=== PATIENT | male | born 1950 | race Caucasian/White ===

== ENCOUNTER 2016-10-14 16:41 | Emergency (ER) | payer OTHER ==
--- NOTE | 2016-10-14 16:44 | PDOC ---
History of Present Illness - General Chief Complaint: Pain, Acute Stated Complaint: LEFT HIP AND LEFT LEG PAIN Time Seen by Provider: 10/14/16 16:44 History Source: Patient Exam Limitations: No Limitations - History of Present Illness Initial Comments: 10/14/16 16:44 The patient is a 66-year-old male with a significant past medical history of severe osteoarthritis, prior left hip replacement, who presents to the emergency department with left hip pain that began after a mechanical fall 2 days ago. He lost his footing, fell onto his left hip. He denies head trauma, pain or injury anywhere other than the left hip. The pain is a mild dull ache. It is worsened with ambulation, movement, palpation. He denies back pain, chest pain, abdominal pain. He denies lower extremity weakness or paresthesias. He denies bladder or bowel incontinence or retention. Past History - Past Medical History Allergies/Adverse Reactions: Allergies Allergy/AdvReac Type Severity Reaction Status Date / Time Penicillins Allergy Intermediate Nausea Verified 10/14/16 16:44 codeine Allergy Nausea Verified 10/14/16 16:45 Home Medications: Ambulatory Orders NK [No Known Home Medication] 10/14/16 Review of Systems - Review of Systems Comments:: 10/14/16 16:45 CONSTITUTIONAL: Absent: fever, chills, fatigue EYES: Absent: visual changes ENT: Absent: ear pain, sore throat CARDIOVASCULAR: Absent: chest pain, palpitations, loss of consciousness RESPIRATORY: Absent: cough, SOB GI: Absent: abdominal pain, nausea, vomiting, constipation, diarrhea GENITOURINARY: Absent: dysuria, frequency, hematuria MUSKULOSKELETAL: Present: See history of present illness Absent: back pain SKIN: Absent: rash NEURO: Absent: headache, dizziness *Physical Exam - Physical Exam Comments: 10/14/16 16:46 GENERAL: Patient is awake, alert and in no acute distress. Speech is clear and appropriate. HEAD: Atraumatic and nontender. HEENT: Pupils are equal round and reactive to light, extraocular movements are intact. The tympanic membranes are clear, no hemotympanum. No facial deformity. No facial bone tenderness or step-off. No nasal septal hematoma. The oropharynx is clear. NECK: The trachea is midline, there is no stridor. There is no midline cervical spine tenderness, full range of motion of neck. CHEST: Non-tender, no ecchymosis or abrasions. Equal chest wall expansion bilaterally. No flail segments. Lungs are clear to auscultation bilaterally. CARDIOVASCULAR: S1-S2, regular rate and rhythm. No murmurs or rubs. ABDOMEN: Soft, nontender, nondistended. Bowel sounds are normoactive. There is no abdominal or flank ecchymosis. BACK/PELVIS: There is no midline thoracic or lumbosacral spine tenderness or step-off. Pelvis is stable and nontender. EXTREMITIES: There is no extremity deformity or joint swelling. No focal bony tenderness throughout. 2+ distal pulses throughout. There is pain at the left hip with passive and active range of motion, especially external rotation. He is able to walk, though it does increase his pain. NEURO: Alert and oriented x3. Cranial nerves II through XII are intact. 5 out of 5 motor strength x4 extremities. No gross sensory deficits. Iljpkv-[id number]-[id number] is intact. No pronator drift. Gait is stable. SKIN: No abrasions, hematomas, lacerations. PSYCH: Affect is appropriate Medical Decision Making - Medical Decision Making 10/14/16 16:46 He is well-appearing and in no acute distress Will obtain x-ray of the hip and pelvis 10/14/16 17:37 Emergency Department interpretation of hip and pelvis x-ray: No acute pathology noted He continues to have pain with ambulation Will obtain CT Clinical impression thusfar: Hip contusion 10/14/16 18:52 CT result pending Case discussed in detail with oncoming Emergency Physician including history, physical exam and ancillary studies. Oncoming Emergency Physician has assumed care for the patient and will complete the evaluation and treatment. *DC/Admit/Observation/Transfer Diagnosis at time of Disposition: Contusion, hip - Discharge Dispostion Condition at time of disposition: Improved - Patient Instructions Printed Discharge Instructions: DI for Contusion Additional Instructions: Return to the emergency department immediately with ANY new, persistent or worsening symptoms. You MUST call and follow up with your doctor tomorrow. Please make sure your doctor reviews the results of your emergency department evaluation.
[2016-10-14 17:02] VITALS: BP 105/75; PULSE 90; TEMP 98.1; BMI 17.1
[2016-10-14] MEDS ORDERED: IBUPROFEN 600 MG TABLET (FP) PO ONE ×2 (20:22→20:36)
--- NOTE | 2016-10-14 21:46 | PDOC ---
*Physical Exam - Vital Signs Last Vital Signs Temp Pulse Resp BP Pulse Ox 98.1 F 90 20 105/75 95 10/14/16 16:42 10/14/16 16:42 10/14/16 16:42 10/14/16 16:42 10/14/16 16:42 ED Treatment Course - Medications Given in the ED: ED Medications Discontinued Medications Generic Name Dose Route Start Last Admin Trade Name Celine PRN Reason Stop Dose Admin Ibuprofen 600 mg 10/14/16 20:22 10/14/16 20:38 Motrin - PO 10/14/16 20:23 600 mg ONCE ONE Administration Progress Note - Progress Note Progress Note: Care of this patient received from Dr. Lambert. Medical Decision Making - Medical Decision Making 10/14/16 21:44 CT of pelvis and lower extremity has not been interpreted by Imaging electronics supervisor yet , despite 3 phone calls to inquire regarding the reason for the delay. Ibuprofen 600 mg had been given to the patient approximately an hour ago; he is comfortable and very eager to be discharged. Patient will be discharged in the company of his son; son will be contacted regarding reading of the CT. They will return to the emergency room if there is any worsening of the pain or development of any new problem. 10/14/16 23:02 CT of pelvis and left lower extremity show no evidence acute fracture or dislocation. Left femoral prosthesis is in place without evidence of abnormality. There is note of a right iliac lytic lesion that is nonspecific. Patient's son is contacted by phone and preliminary interpretation relayed to him. Follow-up will be as scheduled with his doctor tomorrow. *DC/Admit/Observation/Transfer Diagnosis at time of Disposition: Contusion, hip - Discharge Dispostion Disposition: HOME Condition at time of disposition: Improved - Referrals - Patient Instructions Printed Discharge Instructions: DI for Contusion Additional Instructions: Return to the emergency department immediately with ANY new, persistent or worsening symptoms. You MUST call and follow up with your doctor tomorrow. Please make sure your doctor reviews the results of your emergency department evaluation. - Post Discharge Activity
--- NOTE | 2016-10-27 12:50 | PDOC ---
Patient Follow-up (Call Back) - Post ED Follow - Up Condition at time of discharge: Improved Disposition at time of original discharge: HOME Reason for Call Back: Radiology - Disposition Additional Instructions/Notes: Pt called to receive his official radiology readings. I discussed them with him. He states that he is still having pain. He lives in [place], has appt with PMD in December. I recommended that he see his PMD within the next week, as he may need repeat films.
== END 2016-10-14 21:49 | disposition home or self-care (01) ==
LOC: FER 16:41
DX: S70.02XA Contusion of left hip, initial encounter (principal); W18.39XA Other fall on same level, initial encounter; Y93.9 Activity, unspecified; Y92.9 Unspecified place or not applicable; Z96.642 Presence of left artificial hip joint
CPT/HCPCS: 72192-TC; 73523-TC; 73700-TC-RT; 99283-25